=== PATIENT | female | born 1985 | race Caucasian/White ===

== ENCOUNTER 2024-07-21 02:19 | Emergency (ER) | payer SELFPAY ==
[~2024-07-21] VITALS: Ht 154.9 cm; Wt 99.7 kg
[2024-07-21] MEDS ORDERED: SODIUM CHLORIDE 0.9% 1,000 ML IV STA (02:37)
[2024-07-21] MEDS ORDERED: MORPHINE SULFATE 4 MG/ML VIAL IV STA (02:37)
[2024-07-21] MEDS ORDERED: Pantoprazole Sodium 40 MG VIAL (Protonix) IV STA (02:37)
[2024-07-21] MEDS ORDERED: KETOROLAC TROMETHAMINE 30 MG/ML SDV IV ONE (02:40)
[2024-07-21] MEDS ORDERED: PROMETHAZINE HCL 25 MG/ML AMP IV ONE (02:40)
[2024-07-21] MEDS ORDERED: DIATRIZOATE MEGLUMINE & SODIUM 30 ML/BTL PO ONE (02:40)
[2024-07-21 03:13] LABS: BASO% 0.5 % (0-3); EOS% 2.2 % (0-8); HEMATOCRIT 38.1 % (37.0-47.0); IMMATURE GRANULOCYTES 0.2 % (0.0-5.0); LYMPH% 29.6 % (15-41); MEAN CELL VOLUME 91.4 fL CALC (80.0-100.0); MEAN CORPUSCULAR HGB 31.2 pG CALC (26.0-32.0); MEAN CORPUSCULAR HGB CONC 34.1 g/dL CAL (32.0-36.0); MONO% 8.8 % (2-13); NEUT# 5.11 thou/uL (2.00-7.15); NEUT% 58.7 % (42-76); RED BLOOD COUNT 4.17 mill/uL (4.20-5.60); RED CELL DISTRI WIDTH 12.2 % (11.5-15.5)
[2024-07-21 03:23] LABS: ALBUMIN 4.2 g/dL (3.2-5.0); BILIRUBIN, TOTAL 0.8 mg/dL (0.02-1.3); CREATININE 0.7 mg/dL (0.5-1.0); POTASSIUM 4.4 mmol/l (3.5-5.1); TOTAL PROTEIN 7.2 g/dL (6.3-8.2)
[2024-07-21 04:56] LABS: URINE BILIRUBIN - DIPSTICK Negative (NEGATIVE); URINE BLOOD DIPSTICK Moderate (NEGATIVE); URINE GLUCOSE - DIPSTICK Negative (NEGATIVE); URINE KETONE Negative (NEGATIVE); URINE NITRITE - DIPSTICK Negative (Negative); URINE PH 5.5 (4.5-8.0); URINE PROTEIN - DIPSTICK Negative (NEG-TRACE); URINE SPECIFIC GRAVITY 1.015; URINE UROBILINOGEN - DIPSTICK 0.2 E.U./dL (0.2)
[2024-07-21 04:57] LABS: URINE COLOR Yellow; URINE LEUK ESTERASE Negative (NEGATIVE)
[2024-07-21] MEDS ORDERED: TRAMADOL HYDROC50 M1 PO (05:04)
[2024-07-21 05:14] VITALS: BP 132/74
[2024-07-21 05:16] LABS: URINE EPITHELIAL CELLS FEW EPI/hpf (0-FEW)
[2024-07-21 05:17] LABS: URINE BACTERIA FEW hpf
[2024-07-22] MEDS ORDERED: SEROQUEL25 MG PO (05:02)
== END 2024-07-21 05:14 | disposition home or self-care (01) | DRG 446 ==
LOC: ED 02:19
PROVIDERS: Family Medicine
DX: K80.20 Calculus of gallbladder without cholecystitis without obstruction (principal); F41.9 Anxiety disorder, unspecified
CPT/HCPCS: J2470; J2550; Q9967